=== PATIENT | male | born 1945 | race Caucasian/White ===

== ENCOUNTER → 2016-08-03 | Outpatient (CLI) | payer MEDICARE ==
[~2016-08-03] MED LIST: CIPRO DPS500 MG PO; HABITROL DPS7 MG TD; VITAMIN B-12500 MCG PO; VITAMIN D2000 UNIT PO
== END | disposition home or self-care (01) ==
LOC: RAD.S 09:02
DX: N20.0 Calculus of kidney (principal); M47.816 Spondylosis without myelopathy or radiculopathy, lumbar region

== ENCOUNTER → 2016-09-08 | Outpatient (CLI) | payer MEDICARE | END | disposition home or self-care (01) | LOC: RAD.S 08:30 | DX: N20.0 Calculus of kidney (principal); Z96.0 Presence of urogenital implants ==